=== PATIENT | female | born 1995 | race Caucasian/White ===

== ENCOUNTER 2021-03-26 10:36 | Emergency (ER) | payer BC ==
[~2021-03-26] VITALS: Ht 160 cm; Wt 95.3 kg
[2021-03-26] MEDS ORDERED: CITALOPRAM HBR40 MG PO (10:49)
[2021-03-26 11:49] VITALS: BP 122/83
== END 2021-03-26 11:51 | disposition home or self-care (01) ==
LOC: M.ERS 10:36
DX: O98.511 Other viral diseases complicating pregnancy, first trimester (principal); U07.1 COVID-19; R51.9 Headache, unspecified; R43.8 Other disturbances of smell and taste; M79.10 Myalgia, unspecified site; Z3A.10 10 weeks gestation of pregnancy; Z79.899 Other long term (current) drug therapy